=== PATIENT | male | born 1985 | race Two or more races ===

== ENCOUNTER 2025-07-04 10:19 | Emergency (ER) | payer OTHER ==
[~2025-07-04] VITALS: Ht 172.7 cm; Wt 79.5 kg
[2025-07-04 10:27] VITALS: TEMP 98.5
[2025-07-04] MEDS: IBUPROFEN 600 MG TABLET PO ONE (10:48)
[2025-07-04 11:42] VITALS: BP 118/75; PULSE 98; RESP 20; O2SAT 97
== END 2025-07-04 11:45 | disposition home or self-care (01) ==
LOC: EMS 10:19
DX: S93.401A Sprain of unspecified ligament of right ankle, initial encounter (principal); W19.XXXA Unspecified fall, initial encounter; X50.1XXA Overexertion from prolonged static or awkward postures, initial encounter; Y93.02 Activity, running; Y92.89 Other specified places as the place of occurrence of the external cause; Y99.8 Other external cause status
CPT/HCPCS: 29515; 99283